=== PATIENT | male | born 1940 | race Two or more races ===

== ENCOUNTER 2024-10-07 17:01 | Inpatient (IN) | payer MEDICARE ==
[~2024-10-07] VITALS: Ht 170.2 cm; Wt 84.8 kg
[2024-10-07] MEDS ORDERED: DAPA10TA PO (17:22)
[2024-10-07] MEDS ORDERED: CLON0.1T PO (17:22)
[2024-10-07] MEDS ORDERED: CIPR-263 PO (17:22)
[2024-10-07] MEDS: IV NS 1000 ML 1,000 ML IV ONE ×2 (17:23→20:10)
[2024-10-07 17:27] LABS: BASOPHILS % (AUTO) 0.2 % (0.0-2.0); EOSINOPHILS % (AUTO) 0.2 % (0.0-7.0); HEMATOCRIT 36.8 % (36.7-47.1); HEMOGLOBIN 12.4 g/dL (12.5-16.3); LYMPHOCYTES # (AUTO) 0.1 K/uL (0.8-4.8); MEAN CORPUSCULAR HEMOGLOBIN 30.6 uug (23.8-33.4); MEAN CORPUSCULAR HGB CONC 34 g/dL (32.5-36.3); MEAN CORPUSCULAR VOLUME 90.8 fL (73.0-96.2); MONOCYTES # (AUTO) 0.3 K/uL (0.1-1.30); NEUTROPHILS # (AUTO) 4.9 K/uL (1.8-8.9); NEUTROPHILS % (AUTO) 91.6 % (38.5-71.5); PLATELET COUNT (AUTO) 180 K/uL (152-348); RED BLOOD CELL COUNT(AUTO) 4.05 MIL/uL (4.06-5.63); RED CELL DISTRIBUTION WIDTH 14.1 % (12.1-16.2); WHITE BLOOD COUNT (AUTO) 5.3 K/uL (3.6-10.2)
[2024-10-07 17:31] LABS: DIFFERENTIAL COMMENT 1
[2024-10-07 17:35] LABS: CALCIUM 8.5 mg/dL (8.5-10.1); CARBON DIOXIDE 16 mmol/L (21-32); CHLORIDE 101 mmol/L (98-107); CREATININE 1.4 mg/dL (0.6-1.3); GLUCOSE 119 mg/dL (74-106); POTASSIUM 3.4 mmol/L (3.5-5.1); SODIUM SERUM 136 mmol/L (136-145); UREA NITROGEN, BLOOD 42 mg/dL (7-18)
[2024-10-07 17:47] LABS: ALANINE AMINOTRANSFERASE 37 U/L (16-63); ALBUMIN 2.9 g/dL (3.4-5.0); ALKALINE PHOSPHATASE 122 U/L (50-136); ASPARTATE AMINOTRANSFERASE 20 U/L (15-37); BILIRUBIN,DIRECT 0.2 mg/dL (0.0-0.2); BILIRUBIN,TOTAL 0.6 mg/dL (0.2-1.0); NT-PRO BNP 727 pg/mL (0-125); TOTAL PROTEIN, SERUM 6.9 g/dL (6.4-8.2)
[2024-10-07] MEDS: POTASSIUM BICARBONATE/CIT AC 25 MEQ TABLET.EFF PO ONE (18:00)
[2024-10-07] MEDS ORDERED: POTASSIUM BICARBONATE/CIT AC 25 MEQ TABLET.EFF ONE (18:36)
[2024-10-07 18:56] LABS: THYROID STIMULATING HORMONE 2.83 mIU/mL (0.358-3.740)
[2024-10-07 18:59] LABS: MAGNESIUM 2.4 mg/dL (1.8-2.4)
[2024-10-07 19:04] LABS: *BILIRUBIN,URIN 1+ (NEGATIVE); *BLOOD, URINE 1+ (NEGATIVE); *COLOR,URINE DARK YELLOW (YELLOW); *KETONES,URINE 2+ (NEGATIVE); *PROTEIN,URINE 2+ (NEGATIVE); LEUKOCYTE ESTERASE ,URINE 1+ (NEGATIVE); NITRITE, URINE POSITIVE (NEGATIVE); UGLUCOSE 3+ (NEGATIVE)
[2024-10-07 19:05] LABS: *CLARITY,URINE SLIGHTLY CLOUDY (CLEAR)
[2024-10-07 19:17] LABS: BACTERIA,URINE FEW /HPF (NONE SEEN); SQUAMOUS EPITHELIAL CELL,UR FEW /HPF (NONE SEEN); WBC,URINE 20-50 /HPF (0-3)
[2024-10-07] MEDS ORDERED: GENTAMICIN SULFATE 80 MG/2 ML VIAL ONE (19:55)
[2024-10-07] MEDS ORDERED: CEFTRIAXONE /D5W 50ML IVPB **ER PYXIS IV ONE (19:55)
[2024-10-07] MEDS ORDERED: SWABABLE VALVE TRANSFER SET EA MC ONE (20:06)
[2024-10-07] MEDS ORDERED: IOHEXOL 350 100 ML INFUS..BTL ONE (20:06)
[2024-10-07] MEDS ORDERED: IV NORMAL SALINE 250 ML IV ONE (20:06)
[2024-10-07] MEDS: GENTAMICIN SULFATE 20 MG/2 ML VIAL IV ONE (20:10)
[2024-10-07] MEDS: CEFTRIAXONE 1 G in IV DEXTROSE 5% 50 ML IV ONE (20:10)
[2024-10-08] MEDS ORDERED: MAGNESIUM HYDROXIDE 30 ML LIQUID UDC PO PRN
[2024-10-08] MEDS ORDERED: DEXTROSE 50% 50 ML DISP.SYRIN IV PRN
[2024-10-08 02:00] VITALS: BP 148/80; TEMP 98.4
[2024-10-08] MEDS: ONDANSETRON 4 MG/2 ML VIAL IV PRN (06:03)
[2024-10-08 06:42] LABS: BASOPHILS % (AUTO) 0.1 % (0.0-2.0); HEMATOCRIT 35.2 % (36.7-47.1); LYMPHOCYTES # (AUTO) 0.1 K/uL (0.8-4.8); LYMPHOCYTES % (AUTO) 2.3 % (20.5-51.5); MEAN CORPUSCULAR HEMOGLOBIN 31.2 uug (23.8-33.4); MEAN CORPUSCULAR HGB CONC 34 g/dL (32.5-36.3); MEAN CORPUSCULAR VOLUME 91.5 fL (73.0-96.2); MONOCYTES # (AUTO) 0.6 K/uL (0.1-1.30); MONOCYTES % (AUTO) 10.8 % (0.0-11.0); NEUTROPHILS # (AUTO) 4.8 K/uL (1.8-8.9); NEUTROPHILS % (AUTO) 86.8 % (38.5-71.5); PLATELET COUNT (AUTO) 155 K/uL (152-348); RED BLOOD CELL COUNT(AUTO) 3.85 MIL/uL (4.06-5.63); RED CELL DISTRIBUTION WIDTH 14.2 % (12.1-16.2); WHITE BLOOD COUNT (AUTO) 5.6 K/uL (3.6-10.2)
[2024-10-08 06:46] LABS: DIFFERENTIAL COMMENT 1
[2024-10-08 07:24] LABS: CALCIUM 8.6 mg/dL (8.5-10.1); CARBON DIOXIDE 18 mmol/L (21-32); CHLORIDE 104 mmol/L (98-107); CREATININE 1.3 mg/dL (0.6-1.3); GLUCOSE 165 mg/dL (74-106); MAGNESIUM 2.3 mg/dL (1.8-2.4); PHOSPHOROUS 3.9 mg/dL (2.5-4.9); POTASSIUM 4.6 mmol/L (3.5-5.1); SODIUM SERUM 139 mmol/L (136-145); UREA NITROGEN, BLOOD 32 mg/dL (7-18)
[2024-10-08] MEDS: BLOOD SUGAR DIAGNOSTIC 1 EACH STRIP VI SCH (08:08)
[2024-10-08] MEDS: INSULIN REGULAR, HUMAN 1000 UNIT/10 ML VIAL SQ PRN (08:13)
[2024-10-08] MEDS: IV NS 1000 ML 1,000 ML IV SCH (08:18)
[2024-10-08 08:41] VITALS: BP 167/84; TEMP 97.7; O2SAT 97
[2024-10-08] MEDS: PANTOPRAZOLE SODIUM 40 MG VIAL IV SCH (08:45)
[2024-10-08] MEDS: DAPAGLIFLOZIN PROPANEDIOL 5 MG TABLET PO SCH (08:45)
[2024-10-08 11:45] VITALS: BP 147/66; TEMP 97.7; O2SAT 97
[2024-10-08 12:52] LABS: LYMPHOCYTES % (MANUAL) 2 % (20-40); MONOCYTES % (MANUAL) 11 % (2-10); NEUTROPHILS % (MANUAL) 87 % (42-75)
[2024-10-08 12:53] LABS: PLATELET ESTIMATE ADEQUATE
[2024-10-08] MEDS ORDERED: ASPI81TA31 PO (12:53)
[2024-10-08] MEDS ORDERED: BRIN10DR LEFTEYE (12:53)
[2024-10-08] MEDS ORDERED: POLY15DR31 EACHEYE (12:53)
[2024-10-08] MEDS ORDERED: BRIM5DRO2 LEFTEYE (12:53)
[2024-10-08] MEDS ORDERED: INSU100I58 SQ (12:53)
[2024-10-08] MEDS ORDERED: METO-356 PO (12:53)
[2024-10-08] MEDS ORDERED: PRED5DRO24 RIGHTEYE (12:53)
[2024-10-08] MEDS ORDERED: VENL-192 PO (12:53)
[2024-10-08] MEDS ORDERED: SERT-438 PO (12:53)
[2024-10-08] MEDS ORDERED: TELM40TA8 PO (12:53)
[2024-10-08] MEDS ORDERED: MIRT-93 PO (12:53)
[2024-10-08] MEDS ORDERED: LEVO88TA5 PO (12:53)
[2024-10-08] MEDS ORDERED: AMLO2.5T4 PO (12:53)
[2024-10-08] MEDS ORDERED: INSU100V37 SQ (12:53)
[2024-10-08] MEDS ORDERED: ROSU5TAB PO (12:58)
[2024-10-08 15:38] VITALS: BP 154/72; TEMP 98; O2SAT 97
[2024-10-08] MEDS: DORZOLAMIDE 2% OPHT DROP 10 ML BOTTLE LEFTEYE SCH (16:59)
[2024-10-08] MEDS: LOSARTAN POTASSIUM 50 MG TABLET PO SCH (16:59)
[2024-10-08] MEDS: IBUPROFEN 800 MG TABLET PO PRN (17:00)
[2024-10-08] MEDS ORDERED: BRINZOLAMIDE 1% OPHT DROP 10 ML BOTTLE LEFTEYE SCH (17:00)
[2024-10-08] MEDS: AMLODIPINE 2.5 MG TABLET PO SCH (17:24)
[2024-10-08] MEDS: ASPIRIN 81 MG TAB.CHEW PO SCH (17:24)
[2024-10-08] MEDS: METOPROLOL SUCCINATE XL 25 MG TAB.SR.24H PO SCH (17:25)
[2024-10-08] MEDS: MIRTAZAPINE 15 MG TABLET PO SCH (20:31)
[2024-10-08] MEDS: ATORVASTATIN 10 MG TABLET PO SCH (20:31)
[2024-10-08] MEDS: CEFTRIAXONE 1 G in IV DEXTROSE 5% 50 ML IV SCH (20:31)
[2024-10-08] MEDS: ACETAMINOPHEN 325 MG TABLET PO PRN (20:35)
[2024-10-08] MEDS ORDERED: Medication Not On Formulary EA (Rosuvastatin Calcium (Crestor) 5 MG) PO SCH (21:00)
[2024-10-09] VITALS: BP 145/69; TEMP 97.9; O2SAT 97
[2024-10-09 04:00] VITALS: BP 153/74; TEMP 97.9; O2SAT 98
[2024-10-09] MEDS: LEVOTHYROXINE SODIUM 88 MCG TABLET PO SCH (06:31)
[2024-10-09] MEDS: CLONIDINE HCL 0.1 MG TABLET PO PRN (06:32)
[2024-10-09 08:00] VITALS: BP 115/67; TEMP 98.2; O2SAT 94
[2024-10-09] MEDS ORDERED: VENLAFAXINE HCL 75 MG PO SCH (09:00)
[2024-10-09] MEDS: SERTRALINE HCL 50 MG TABLET PO SCH (10:24)
[2024-10-09] MEDS: VENLAFAXINE 25 MG TABLET PO SCH (10:24)
[2024-10-09 10:41] LABS: BASOPHILS % (AUTO) 0.3 % (0.0-2.0); EOSINOPHILS % (AUTO) 0.7 % (0.0-7.0); HEMATOCRIT 34.9 % (36.7-47.1); HEMOGLOBIN 11.8 g/dL (12.5-16.3); LYMPHOCYTES # (AUTO) 0.2 K/uL (0.8-4.8); LYMPHOCYTES % (AUTO) 4.7 % (20.5-51.5); MEAN CORPUSCULAR HEMOGLOBIN 30.6 uug (23.8-33.4); MEAN CORPUSCULAR HGB CONC 34 g/dL (32.5-36.3); MEAN CORPUSCULAR VOLUME 90.8 fL (73.0-96.2); MONOCYTES # (AUTO) 0.5 K/uL (0.1-1.30); NEUTROPHILS # (AUTO) 4.4 K/uL (1.8-8.9); NEUTROPHILS % (AUTO) 85.3 % (38.5-71.5); PLATELET COUNT (AUTO) 134 K/uL (152-348); RED BLOOD CELL COUNT(AUTO) 3.84 MIL/uL (4.06-5.63); RED CELL DISTRIBUTION WIDTH 14.2 % (12.1-16.2); WHITE BLOOD COUNT (AUTO) 5.1 K/uL (3.6-10.2)
[2024-10-09 10:56] VITALS: BP 126/71; TEMP 98.2; O2SAT 95
[2024-10-09 11:02] LABS: DIFFERENTIAL COMMENT 1
[2024-10-09 11:07] LABS: CALCIUM 7.8 mg/dL (8.5-10.1); CARBON DIOXIDE 20 mmol/L (21-32); CHLORIDE 102 mmol/L (98-107); CREATININE 1.3 mg/dL (0.6-1.3); GLUCOSE 263 mg/dL (74-106); MAGNESIUM 2.1 mg/dL (1.8-2.4); POTASSIUM 4.4 mmol/L (3.5-5.1); SODIUM SERUM 135 mmol/L (136-145); UREA NITROGEN, BLOOD 32 mg/dL (7-18)
[2024-10-09 15:33] VITALS: BP 132/74; TEMP 97.9; O2SAT 96
[2024-10-09 20:00] VITALS: BP 140/66; TEMP 98.5; O2SAT 97
[2024-10-10 06:00] VITALS: BP 175/83; TEMP 98.7; O2SAT 98
[2024-10-10] MEDS: PANTOPRAZOLE SODIUM 40 MG TABLET.DR PO SCH (06:10)
[2024-10-10 06:50] VITALS: BP 133/64; O2SAT 98
[2024-10-10 07:01] LABS: BASOPHILS % (AUTO) 0.6 % (0.0-2.0); EOSINOPHILS # (AUTO) 0.1 K/uL (0.0-0.7); EOSINOPHILS % (AUTO) 1.4 % (0.0-7.0); HEMATOCRIT 32.1 % (36.7-47.1); HEMOGLOBIN 11.1 g/dL (12.5-16.3); LYMPHOCYTES # (AUTO) 0.5 K/uL (0.8-4.8); LYMPHOCYTES % (AUTO) 10.5 % (20.5-51.5); MEAN CORPUSCULAR HGB CONC 35 g/dL (32.5-36.3); MEAN CORPUSCULAR VOLUME 89.6 fL (73.0-96.2); MONOCYTES # (AUTO) 0.7 K/uL (0.1-1.30); MONOCYTES % (AUTO) 14.8 % (0.0-11.0); NEUTROPHILS # (AUTO) 3.6 K/uL (1.8-8.9); NEUTROPHILS % (AUTO) 72.7 % (38.5-71.5); PLATELET COUNT (AUTO) 131 K/uL (152-348); RED BLOOD CELL COUNT(AUTO) 3.58 MIL/uL (4.06-5.63); RED CELL DISTRIBUTION WIDTH 13.8 % (12.1-16.2)
[2024-10-10 07:21] LABS: CALCIUM 8.1 mg/dL (8.5-10.1); CARBON DIOXIDE 23 mmol/L (21-32); CHLORIDE 103 mmol/L (98-107); CREATININE 1.3 mg/dL (0.6-1.3); GLUCOSE 171 mg/dL (74-106); PHOSPHOROUS 3.1 mg/dL (2.5-4.9); POTASSIUM 3.9 mmol/L (3.5-5.1); SODIUM SERUM 136 mmol/L (136-145); UREA NITROGEN, BLOOD 29 mg/dL (7-18)
[2024-10-10 07:48] LABS: DIFFERENTIAL COMMENT 1
[2024-10-10] MEDS: HYDROCODONE/APAP 5-325MG TABLET PO PRN (08:50)
[2024-10-10 11:44] VITALS: BP 135/79; TEMP 97.5; O2SAT 97
[2024-10-10] MEDS ORDERED: IBUP-1955 PO (15:23)
[2024-10-10] MEDS ORDERED: CIPR-262 PO (15:23)
[2024-10-10] MEDS ORDERED: HYDR-3972 PO (15:23)
[2024-10-10] MEDS ORDERED: DOCU-141 PO (15:23)
[2024-10-10] MEDS ORDERED: POLY17PO4 PO (15:23)
[2024-10-10 15:47] VITALS: BP 131/73; TEMP 97.9; O2SAT 95
== END 2024-10-10 17:25 | disposition home or self-care (01) | DRG 690 ==
LOC: ER 17:03 → TELE3 10-08 01:31 → MEDSURG3 10-09 08:30
DX: N10 Acute pyelonephritis (principal); E87.20 Acidosis, unspecified; D62 Acute posthemorrhagic anemia; E87.1 Hypo-osmolality and hyponatremia; N17.9 Acute kidney failure, unspecified; B96.89 Other specified bacterial agents as the cause of diseases classified elsewhere; R15.9 Full incontinence of feces; N40.1 Benign prostatic hyperplasia with lower urinary tract symptoms; N39.498 Other specified urinary incontinence; Z79.82 Long term (current) use of aspirin; Z79.890 Hormone replacement therapy; E86.0 Dehydration; E87.6 Hypokalemia; R79.1 Abnormal coagulation profile; E88.09 Other disorders of plasma-protein metabolism, not elsewhere classified; E03.9 Hypothyroidism, unspecified; F32.A Depression, unspecified; Z90.79 Acquired absence of other genital organ(s); Z87.440 Personal history of urinary (tract) infections; N18.30 Chronic kidney disease, stage 3 unspecified; E11.22 Type 2 diabetes mellitus with diabetic chronic kidney disease; M89.8X9 Other specified disorders of bone, unspecified site; E66.9 Obesity, unspecified; Z68.29 Body mass index [BMI] 29.0-29.9, adult; K57.30 Diverticulosis of large intestine without perforation or abscess without bleeding; I13.10 Hypertensive heart and chronic kidney disease without heart failure, with stage 1 through stage 4 chronic kidney disease, or unspecified chronic kidney disease; Z79.4 Long term (current) use of insulin; R31.9 Hematuria, unspecified
CPT/HCPCS: 36415; 70030-TC; 71045; 71275; 83605; 83735; 84100; 84443; 84484; 85025; 85730; 87040; A4606; A4663; G0378; J0696; J1580; J1815; J2405; J2470; J7040; Q9967